=== PATIENT | male | born 1970 | race African-American/Black ===

== ENCOUNTER 2018-01-05 17:12 | Emergency (ER) | payer BC ==
--- NOTE | 2018-01-05 17:55 | RAD ---
LEFT KNEE 4 VIEWS: Date: 01/05/18 PROVIDED CLINICAL HISTORY: Knee pain without injury. FINDINGS: There is a prominent fabella. There is no evidence for fracture or other acute osseous abnormality. I f there is persistent clinical concern, conservative management and follow-up imaging are advised. IMPRESSION: As above. POS: [facility]
[2018-01-05] MEDS ORDERED: Ketorolac Tromethamine 60 MG/2 ML VIAL ONE (18:46)
== END 2018-01-05 19:30 | disposition home or self-care (01) ==
LOC: ERS 17:12
DX: M25.562 Pain in left knee (principal); J45.909 Unspecified asthma, uncomplicated
CPT/HCPCS: 96372; J1885